=== PATIENT | female | born 1995 | race African-American/Black ===

== ENCOUNTER 2016-12-30 16:28 | Emergency (ER) | END 2016-12-30 21:02 | disposition home or self-care (01) | DX: N93.9 Abnormal uterine and vaginal bleeding, unspecified (principal) | CPT/HCPCS: 76801; 76817; 81001; 84702; 85025; 86900; 86901; Z7502 ==

== ENCOUNTER 2017-12-22 19:06 | Emergency (ER) | END 2017-12-23 00:26 | disposition home or self-care (01) ==